=== PATIENT | male | born 1940 | race Caucasian/White ===

== ENCOUNTER 2024-08-27 02:30 | Emergency (ER) | payer MEDICARE, BC ==
[2024-08-27] MEDS ORDERED: Sodium Chloride 0.9% 10 ML Syringe FLUSH PRN (02:41)
[2024-08-27 02:48] LABS: BASOPHILS PERCENT AUTO 0.7 % (0.2-1.2); EOSINOPHILS ABSOLUTE AUTO 0.1 x10^3/uL (0.0-0.5); EOSINOPHILS PERCENT AUTO 1.9 % (0.0-4.0); HEMATOCRIT 36.2 % (40.0-52.0); HEMOGLOBIN 12.3 g/dL (14.0-18.0); IMMATURE GRAN ABSOLUTE AUTO 0.01 x10^3/uL (0.00-0.07); LYMPHOCYTES ABSOLUTE AUTO 1.6 x10^3/uL (1.0-4.8); LYMPHOCYTES PERCENT AUTO 38.1 % (25.0-50.0); MEAN CORPUSCULAR HEMOGLOBIN 31.2 pg (26.0-32.0); MEAN CORPUSCULAR VOLUME 91.9 fL (78.0-93.0); MONOCYTES ABSOLUTE AUTO 0.5 x10^3/uL (0.0-0.8); MONOCYTES PERCENT AUTO 10.8 % (2.0-11.0); NEUTROPHILS ABSOLUTE AUTO 2.1 x10^3/uL (1.8-7.7); NEUTROPHILS PERCENT AUTO 48.3 % (50.0-80.0); PLATELET COUNT,PLT 113 x10^3/uL (130-400); RED BLOOD CELL COUNT 3.94 x10^6/uL (4.5-6.0); WHITE BLOOD CELL COUNT,WBC 4.3 x10^3/uL (4.0-10.0)
[2024-08-27 03:07] LABS: INR 0.9 (0.9-1.1); PROTHROMBIN TIME 9.3 SEC (8.9-11.5); PTT,PARTIAL THROMBOPLSTIN TIME 24.5 SEC (21.9-33.8)
[2024-08-27 03:11] LABS: A/G RATIO 1.24; ALANINE AMINOTRANSFERASE,ALT 27 U/L (16-63); ALBUMIN 3.6 g/dL (3.4-5.0); ALKALINE PHOSPHATASE 89 U/L (46-116); ASPARTATE AMNIOTRANSFERASE,AST 20 U/L (15-37); BILIRUBIN TOTAL 0.3 mg/dL (0.2-1.0); BLOOD UREA NITROGEN,BUN 26 mg/dL (7-18); CALCIUM 9.1 mg/dL (8.5-10.1); CARBON DIOXIDE,CO2 27 mmol/L (21-32); CHLORIDE,CL 107 mmol/L (98-107); CREATININE 1.5 mg/dL (0.70-1.30); GLUCOSE RANDOM 130 mg/dL (70-99); MAGNESIUM 2.4 mg/dL (1.8-2.4); POTASSIUM,K 3.7 mmol/L (3.5-5.1); PROTEIN TOTAL,TP 6.5 g/dL (6.4-8.2); SODIUM,NA 144 mmol/L (136-145)
[2024-08-27 03:18] LABS: ANION GAP 13.7 mmol/L (5-15); ESTIMATED GFR 46 mL/min (>=60); ETHANOL BLOOD MEDICAL < 3 mg/dL (0-3)
[2024-08-27] MEDS: Aspirin 81 MG Tab.Chew PO ONE (05:27)
[2024-08-27] MEDS: Clopidogrel 75 MG Tab PO ONE (05:27)
[2024-08-27] MEDS: Iopamidol 755 Mg/ML 100 ML Bottle IVPUSH ONE (14:03)
== END 2024-08-27 05:40 | disposition home or self-care (01) ==
LOC: VM.ED 02:30
DX: R20.0 Anesthesia of skin (principal); Z79.82 Long term (current) use of aspirin; Z79.899 Other long term (current) drug therapy
CPT/HCPCS: 70450; 70496; 80053; 80307; 83735; 84484; 85025; 85610; 85730; 93005; 93010; 99284; A9270-GY; Q9967